=== PATIENT | female | born 1950 | race Caucasian/White ===

== ENCOUNTER 2021-06-11 18:17 | Inpatient (IN) | payer MEDICARE ==
[2021-06-11 18:38] LABS: #Eosinphils 0.2 10x3/uL (0.0-0.5); #Monocytes 0.7 10x3/uL (0.0-1.1); #Neutrophils 6.6 10x3/uL (1.5-8.4); %Basophils 0.4 % (0.0-2.0); %Eosinophils 1.6 % (0.0-6.0); %Lymphocytes 22.3 % (18.0-47.0); %Monocytes 7.4 % (0.0-10.0); %Neutrophils 68.1 % (40.0-75.0); Hemoglobin 15.4 g/dL (12.0-15.5); Mean Corpuscular Hemoglobin 28.8 pg (27.0-33.0); Mean Corpuscular Volume 87.3 fl (81.6-98.3); Mean Platelet Volume 9.3 fl (7.4-10.4); Platelet Count 294 10x3/uL (150-450); RBC Distribution Width 13.6 % (11.5-14.5); Red Blood Cell (RBC) Count 5.34 10x6/uL (3.90-5.03); White Blood Cell (WBC) Count 9.7 10x3/uL (3.5-10.5)
[2021-06-11 18:53] LABS: ALT (SGPT) 22 U/L (8-55); Albumin 4.4 g/dL (3.4-4.8); Alkaline Phosphatase 78 U/L (40-110); Anion Gap 16 mmol/L (10-20); BUN (Urea Nitrogen) 14 mg/dL (9.8-20.1); Bilirubin, Total 0.4 mg/dL (0.2-1.2); Calc. Creatinine Clearance 0 mL/min (70-130); Calcium 9.5 mg/dL (7.8-10.44); Carbon Dioxide 25 mmol/L (23-31); Chloride 106 mmol/L (98-107); Globulin 3.3 g/dL (2.4-3.5); Glucose 96 mg/dL (83-110); Potassium 4.3 mmol/L (3.5-5.1); Protein, Total 7.7 g/dL (5.8-8.1); Sodium 143 mmol/L (136-145)
[2021-06-11 18:58] LABS: AST (SGOT) 30 U/L (5-34)
[2021-06-11] MEDS ORDERED: Amiodarone 150 MG/3 ML VIAL ONE (19:34)
[2021-06-11] MEDS ORDERED: Amiodarone In Dextrose 200 ML ONE (19:57)
[2021-06-11] MEDS ORDERED: Calcium Carbonate 500 MG ChewTAB PO PRN (20:21)
[2021-06-11] MEDS ORDERED: Zolpidem Tartrate 5 MG TAB PO PRN (20:21)
[2021-06-11] MEDS ORDERED: Ondansetron PF 4 MG/2 ML Vial IVP PRN (20:21)
[2021-06-11] MEDS ORDERED: Acetaminophen 325 MG TAB PO PRN (20:21)
[2021-06-11] MEDS ORDERED: Senokot S 8.6-50 MG TAB PO PRN (20:21)
[2021-06-11] MEDS ORDERED: Amiodarone In Dextrose 200 ML IVPB SCH (20:30)
[2021-06-11] MEDS ORDERED: Loratadine 10 MG TAB PO SCH (21:00)
[2021-06-11] MEDS ORDERED: Bupropion 150 MG SR TAB PO SCH (21:00)
[2021-06-11] MEDS: Enoxaparin Sodium 120 MG/0.8 ML SYRINGE SC SCH (22:03)
[2021-06-11 22:05] VITALS: BMI 47.7
[2021-06-11] MEDS ORDERED: Levothyroxine 150 MCG TAB PO SCH (22:30)
[2021-06-11] MEDS ORDERED: Levothyroxine Sodium 25 MCG TAB PO SCH (22:30)
[2021-06-12 01:21] LABS: SARS-CoV-2 NAA Rapid Test Not Detected (NotDetected)
[2021-06-12 04:36] LABS: Anion Gap 15 mmol/L (10-20); BUN (Urea Nitrogen) 14 mg/dL (9.8-20.1); Calc. Creatinine Clearance 152 mL/min (70-130); Calcium 8.9 mg/dL (7.8-10.44); Carbon Dioxide 24 mmol/L (23-31); Chloride 108 mmol/L (98-107); Glucose 116 mg/dL (83-110); Potassium 3.9 mmol/L (3.5-5.1); Sodium 143 mmol/L (136-145)
[2021-06-12 04:53] LABS: Free T4 (Free Thyroxine) 1.27 ng/dL (0.70-1.48)
[2021-06-12] MEDS ORDERED: Levothyroxine Sodium 25 MCG TAB PO SCH ×2 (06:00→21:00)
[2021-06-12] MEDS ORDERED: Levothyroxine 150 MCG TAB PO SCH ×2 (06:00→21:00)
[2021-06-12] MEDS ORDERED: Cholecalciferol 1,000 UNITS (25 MCG) TAB PO SCH (09:00)
[2021-06-12] MEDS ORDERED: Trospium 20 MG TAB PO SCH (09:00)
[2021-06-12] MEDS: Enoxaparin Sodium 120 MG/0.8 ML SYRINGE SC SCH (09:02)
[2021-06-12] MEDS ORDERED: Bupropion 150 MG SR TAB PO SCH (10:00)
== END 2021-06-12 11:25 | disposition home or self-care (01) | DRG 309 ==
LOC: CSHERS 18:17 → CSHIMCU 21:23
PROVIDERS: ADMIT Student in an Organized Health Care Education/Training Program; ATTEND Internal Medicine
DX: I48.0 Paroxysmal atrial fibrillation (principal); Z68.42 Body mass index [BMI] 45.0-49.9, adult; F32.A Depression, unspecified; E66.01 Morbid (severe) obesity due to excess calories; G47.33 Obstructive sleep apnea (adult) (pediatric); N18.31 Chronic kidney disease, stage 3a; R60.0 Localized edema; E03.9 Hypothyroidism, unspecified; Z20.822 Contact with and (suspected) exposure to COVID-19; Z98.890 Other specified postprocedural states; Z88.8 Allergy status to other drugs, medicaments and biological substances; Z82.49 Family history of ischemic heart disease and other diseases of the circulatory system; Z90.710 Acquired absence of both cervix and uterus; Z79.890 Hormone replacement therapy; Z79.82 Long term (current) use of aspirin; Z79.899 Other long term (current) drug therapy
CPT/HCPCS: 36415; 71045; 80048; 80053; 83880; 84439; 84443; 84481; 84484; 85025; 93005; 93306; 96365; 96376; J0282; J1650; U0002